=== PATIENT | male | born 1950 | race Caucasian/White ===

== ENCOUNTER 2017-05-12 10:04 | Inpatient (IN) | payer MEDICARE, OTHER ==
[~2017-05-12] VITALS: Ht 185.4 cm; Wt 80.8 kg
[~2017-05-12 10:04] MED LIST: ACETAMINOPHEN1 EAC4 PO; FISH OIL 1,0001 CA PO; HYDROCODON-ACE1 EAC7 PO; IBUPROFEN IB200 MG PO; KEFLEX500 M4 PO; MIRALAX17 G2 PO; NICODERM21 MG/PATC TD; OSTEO BI-FLEX1 EAC5 PO; [UNRECOGNIZED DRUG - OTHER]; [UNRECOGNIZED DRUG - OTHER] PO
[2017-05-12 11:36] LABS: HCT-HEMATOCRIT 37.8 % (36.0-53.5); HGB-HEMOGLOBIN 12.7 gm/dl (13.5-17.0); MCV (MEAN CELL VOLUME) 88.7 fl (82.0-96.0); RED CELL DISTRIBUTION WIDTH 14.5 % (12.4-16.4)
[2017-05-12 11:55] LABS: ANION GAP 12 mmol/L (0-20); BLOOD UREA NITROGEN 22 mg/dl (6-24); CALCIUM 9.1 mg/dl (8.5-10.5); CARBON DIOXIDE-VENOUS 29 mmol/L (22-32); CHLORIDE 105 mmol/l (96-110); CREATININE 0.96 mg/dl (0.60-1.30); GLUCOSE 90 mg/dL (70-110); POTASSIUM 4.4 mmol/L (3.7-5.1); SODIUM 142 mmol/L (135-145); eGFR VALUE FOR BLACK >90 mL/Min
--- NOTE | 2017-05-12 20:50 | NUR ---
VIRTUAL CARE NOTE: PT. IS IN BED, STATES PAIN WAS IMPROVED FROM PRIOR PAIN MEDICATION MORPHINE AND TORADOL GIVEN. THIS NURSE PROVIDED BRIEF EDUCATION ON MORPHINE AND TORADOL, ALTHOUGH NORCO AND PERCOCET NEW MEDICATION ORDERED MORE THOROUGHLY REVIEWED DUE TO ONE OF THESE MEDICATIONS IS WHAT THE PATIENT MAY BE GOING HOME WITH. SIDE EFFECTS REVIEWED. ALSO POST-OP EDUCATION OF WALKING AND C,DB AND AMBULATION GIVEN ALONG WITH ANETHESIA SIDE EFFECTS REVIEWED. THE PATIENT ASKED ABOUT NON-NARCOTIC PAIN MED OPTIONS AND STOOL SOFTNERS THAT HE TAKES AND WOULD PROBABLY NEED REVIEWED. THIS NURSE EDUCATION PATIENT WE WILL HAVE TO MAKE SURE WE ASK THE SURGEON THESE QUESTIONS IN THE AM TO MAKE SURE WE HAVE ORDERS AND FURTHER DISCHARGE INSTRUCTION FOR HIM TO TAKE. ALSO VIRTUAL NURSE ROLE REVIEWED WITH PT. DENIES FURTHER NEEDS AT THIS TIME. INSTRUCTED TO CALL FOR FUTURE NEEDS. STATES VERBAL UNDERSTANDING OF ALL EDUCATION GIVEN.
[2017-05-13] MEDS ORDERED: ULTRAM50 M1 PO (10:41)
[2017-05-13] MEDS ORDERED: STOP HOME MEDICATION (10:42)
[2017-05-13] MEDS ORDERED: TYLENOL325 M2 PO (10:44)
--- NOTE | 2017-05-13 11:32 | NUR ---
VIRTUAL CARE NOTE: PT DRESSED READY FOR DISCHARGE INSTRUCTIONS, BROTHER IN THE ROOM. INFORMATION GIVEN TO PT, LYNDON TEACHING DONE PT STATES FEEL COMFORTABLE TAKE CARE OF THE DRAIN AT HOME. QUESTIONS ANSWERED TO PT, PT DENIES FURTHER QUESTIONS OR CONCERNS. INFORMED FLOOR NURSE DISCHARGE TEACHING DONE.
== END 2017-05-13 11:40 | DRG 355 ==
LOC: SHSB 10:04 → SRG 10:04 → SHSB 10:07 → SRG 10:08 → SHSB 13:21 → ORW 13:21 → PACU 15:41 → ORW 15:41 → PACU 15:41 → SHSB 16:20 → PACU 16:20 → 5WD 20:15 → SHSB 20:15 → 5WD 05-13 11:39
PROVIDERS: ADMIT Colon & Rectal Surgery
PROC: 0WUF0JZ Supplement Abdominal Wall with Synthetic Substitute, Open Approach (ICD-10-PCS; principal; 2017-05-12)
DX: K43.5 Parastomal hernia without obstruction or gangrene (principal); F17.200 Nicotine dependence, unspecified, uncomplicated; Z85.038 Personal history of other malignant neoplasm of large intestine; Z79.1 Long term (current) use of non-steroidal anti-inflammatories (NSAID); Z79.899 Other long term (current) drug therapy; Z93.3 Colostomy status
CPT/HCPCS: C1781; J1170; J1335; J1644; J1885; J2270